=== PATIENT | female | born 2000 | race American Indian/Alaskan Native ===

== ENCOUNTER 2024-05-14 23:33 | Emergency (ER) | payer OTHER, SELFPAY ==
[2024-05-15] VITALS: BP 132/86; PULSE 80; RESP 16; TEMP 36.6; O2SAT 99; BMI 37.0
[2024-05-15 02:28] VITALS: BP 125/69; PULSE 90; RESP 17; O2SAT 96
--- NOTE | 2024-05-15 02:29 | ED_ITS ---
HPI - Recheck/Abnormal Lab/Rx General Chief Complaint: Recheck/Abnormal Lab/Rx Stated Complaint: medications are not working well together Time Seen by Provider: 05/15/24 02:29 Source: patient Mode of arrival: Ambulatory History of Present Illness HPI narrative: 23-year-old female without any significant past medical history comes into the ED from home for evaluation of palpitations, she states that she is on sertraline for anxiety depression, states that she has been having treatment resistant tinea corporis for the past several weeks was started on fluconazole by her primary care doctor states that after taking this medication yesterday had episode of palpitations that lasted for approximately 1-2 hours self resolved. Not having these symptoms at this time, however she states that she is worried that there was abnormal drug drug interactions associated with this therefore decided come into the ED for further evaluation treatment. Related Data Previous Rx's Medication Instructions Recorded griseofulvin microsize 500 mg 500 mg PO Q12H 2 weeks #28 tabs 05/15/24 tablet Allergies Allergy/AdvReac Type Severity Reaction Status Date / Time No Known Drug Allergies Allergy Verified 05/15/24 00:00 Review of Systems Review of Systems Narrative: General: Denies fever, chills, weight loss HEENT: Denies headache, eye drainage, eye irritation, head trauma, sore throat, voice change Cardiovascular: Positive palpitations, Denies any chest pain shortness of breath, tachycardia Respiratory: Denies any shortness of breath, cough, wheeze, stridor GI/: Denies any abdominal pain, nausea, vomiting, diarrhea, bright red blood per rectum, melanotic stools, urinary frequency, urinary retention, dysuria, hematuria MSK: Denies any joint pain, muscle pains, swelling Skin: Denies any rashes, lesions, discoloration Neuro: Denies any headache, lightheadedness, dizziness, fainting, weakness Psych: Denies SI/HI Patient History Social History Smoking Status: Current every day smoker Smoking Status: Current every day smoker Exam Narrative Exam Narrative: General: Cooperative, comfortable, well-developed, not in acute distress HEENT: Normocephalic, atraumatic, PERRLA, normal sclera, eyelids normal, Neck: Active full range of motion, atraumatic Chest: Normal to inspection, negative crepitus, no overlying erythema ecchymosis Respiratory: Normal respiratory effort, not in acute respiratory distress, clear to auscultation bilaterally negative cough, wheeze, tachypnea, rhonchi, rales Cardiology: Regular rate rhythm negative gallop, murmur, rubs GI/: Normal to inspection, soft, nonrigid, no tenderness to palpation, exam deferred MSK: Full range of active range of motion of all 4 extremities, atraumatic Skin: Scattered rashes noted to patient's abdomen/trunk as well as inguinal region Neuro: Alert awake oriented x3, moves all 4 extremities spontaneously, cranial nerves intact, able to answer all questions appropriately follows commands appropriately Psych: Cooperative, negative suicidal or homicidal ideations Initial Vital Signs Initial Vital Signs: Vital Signs Temperature 97.8 F 05/15/24 00:00 Pulse Rate 80 05/15/24 00:00 Respiratory Rate 16 05/15/24 00:00 Blood Pressure 132/86 05/15/24 00:00 Pulse Oximetry 99 05/15/24 00:00 Oxygen Delivery Method Room Air 05/15/24 00:00 Course Vital Signs Vital signs: Vital Signs - 8 hr 05/15/24 00:00 Temperature 97.8 F Pulse Rate 80 Respiratory Rate 16 Blood Pressure 132/86 Pulse Oximetry 99 Oxygen Delivery Method Room Air MDM - Recheck/Abnormal Lab/Rx Differential Diagnosis Differential diagnosis: Likely other (Arrhythmia, drug drug interaction) ECG Data Interpretation: EKG interpreted ED physician sinus 68 beats per minute QTC 433, normal axis nonspecific ST changes no STEMI MDM Narrative Medical decision making narrative: 23-year-old female who take sertraline comes in for palpitations after starting oral fluconazole for her tinea corporis. Patient had EKG performed here no signs of arrhythmia. Upon review of drug drug interaction sertraline and fluconazole can cause arrhythmias, therefore patient will be changed from oral fluconazole to oral griseofulvin 14 year corporis. Patient will be started on 500 mg b.i.d. for 2 weeks. Patient was instructed to follow up with primary care doctor for continued evaluation treatment of her symptoms. Discharge Plan Departure Patient Disposition: Home Clinical Impression: Adverse drug-drug interaction, Tinea corporis Instructions: DI for Tinea Corporis Activity Restrictions/Additional Instructions: Please follow up with your primary care doctor Please read the discharge instructions sheet carefully and bring all papers to all doctor follow-up visits, as it may contain information that your doctor may want to see. Disease processes change and evolve, if your symptoms worsen or if you develop any new symptoms that are concerning to you please return for evaluation. Your evaluation today does not show any evidence of any life- threatening/serious illnesses requiring admission to the hospital or surgery. Please follow-up with your doctor for re-evaluation in approximately 1 day. Seek immediate medical attention for any worrisome symptoms. *If you do not have a primary care provider please contact the [facility] Resource line at [phone]. They will ask some questions about your medical history and help get you set up with a doctor in the community. Prescriptions: New griseofulvin microsize 500 mg tablet 500 mg PO Q12H 14 Days Qty: 28 0RF Rx Instructions: must administer with high-fat meal or food Stand Alone Forms: Patient Portal/API/Survey
--- NOTE | 2024-05-15 02:47 | EKG_ITS ---
[address] [id number] Test Date: 2024-05-15 Pat Name: Raz Bryson Department: Room: Gender: Female [employer] Line Worker: TENNILLE : 2000 Requested By: Order Number: [id number] Reading MD: Uri Adkins Measurements Intervals [place] Rate: 68 P: 49 MS: 126 QRS: 7 QRSD: 82 T: 32 QT: 408 QTc: 433 Interpretive Statements Normal sinus rhythm Electronically Signed On 05-15-2024 9:42:05 PST by Uri Adkins
== END 2024-05-15 03:06 | disposition home or self-care (01) ==
PROVIDERS: Emergency Provider Student in an Organized Health Care Education/Training Program
DX: R00.2 Palpitations (principal); T37.8X5A Adverse effect of other specified systemic anti-infectives and antiparasitics, initial encounter; B35.4 Tinea corporis; F41.9 Anxiety disorder, unspecified; F32.A Depression, unspecified
CPT/HCPCS: 93005; 99281; 99283